=== PATIENT | male | born 1960 | race African-American/Black ===

== ENCOUNTER 2018-03-14 04:59 | Inpatient (IN) | payer MEDICAID ==
[2018-03-14] VITALS (7 sets, daily range): BP systolic 99–129; BP diastolic 51–89
[~2018-03-14] VITALS: Ht 167.6 cm; Wt 79.8 kg
[2018-03-14] MEDS ORDERED: KETOROLAC 30MG/ML VIAL IV STA (06:32)
[2018-03-14] MEDS ORDERED: ACETAMINOPHEN 325MG TABLET PO STA (06:32)
[2018-03-14] MEDS ORDERED: SODIUM CHLORIDE 0.9% 1,000 ML IV ONE (06:32)
[2018-03-14 07:25] LABS: HEMATOCRIT. 42.6 % (42.0-52.0); HEMOGLOBIN. 14.5 g/dL (14.0-18.0); MEAN PLATELET VOLUME 7.4 fl (7.4-10.4); PLATELET 226 x1000/uL (130-400); RED BLOOD CELL COUNT 4.53 mill/uL (4.7-6.1); RED CELL DISTRIBUTION WIDTH 14.9 % (11.6-14.6)
[2018-03-14 07:32] LABS: CHLORIDE 103 mEq/L (98-107); INR 1.1; PROTHROMBIN TIME 10.9 sec (9.1-11.1)
[2018-03-14 07:55] LABS: CLARITY URINE CLEAR (CLEAR); COLOR URINE DARK YELLOW (YELLOW); KETONES URINE 3+ (NEGATIVE); LEUKOCYTE ESTERASE URINE NEGATIVE (NEGATIVE); NITRITE URINE NEGATIVE (NEGATIVE); OCCULT BLOOD URINE TRACE (NEGATIVE); PROTEIN URINE 1+ (NEGATIVE); SPECIFIC GRAVITY URINE 1.032 (1.005-1.030)
[2018-03-14 08:56] LABS: PLATELET ESTIMATE NORMAL
[2018-03-14] MEDS ORDERED: SODIUM CHLORIDE 0.9% 1000ML BAG (SEPSIS BOLUS) IV ONE (09:15)
[2018-03-14] MEDS ORDERED: PIPERACILLIN/TAZ 3.375G PREMIX 50 ML IV ONE (09:15)
[2018-03-14] MEDS ORDERED: VANCOMYCIN 1 G PREMIX 200 ML IV ONE (09:15)
[2018-03-14] MEDS ORDERED: CEFTRIAXONE 1 G PREMIX 50 ML IV ONE (11:15)
[2018-03-14] MEDS: AZITHROMYCIN 500 MG in DEXT 5% WATER 250 ML IV SCH (12:28)
[2018-03-14] MEDS ORDERED: DOCUSATE SODIUM 100MG CAPSULE PO PRN (15:30)
[2018-03-14] MEDS ORDERED: CLONIDINE 0.1MG TABLET PO PRN (15:30)
[2018-03-14] MEDS ORDERED: GUAIFENESIN 200MG/10ML SUGAR FREE UDC PO PRN (15:30)
[2018-03-14] MEDS ORDERED: IPRATROPIUM/ALBUTEROL 0.5-3(2.5)MG/3ML NEB INH PRN (15:30)
[2018-03-14] MEDS ORDERED: MAGNESIUM/ALUMINUM HYDROXIDE/SIMETHICONE 30ML UDC PO PRN (15:30)
[2018-03-14] MEDS ORDERED: ONDANSETRON HCL 4MG/2ML INJ IV PRN (15:30)
[2018-03-14] MEDS ORDERED: ACETAMINOPHEN 325MG TABLET PO PRN (15:30)
[2018-03-14] MEDS ORDERED: INFLUENZA VIRUS VACCINE(AFLURIA) 0.5ML SYR IM ONE (16:15)
[2018-03-14] MEDS: SODIUM CHLORIDE 0.9% 1,000 ML IV SCH (16:25)
[2018-03-14 20:13] LABS: HEPATITIS B SURFACE ANTIGEN NEGATIVE
[2018-03-14 21:47] LABS: HEPATITIS A AB IGM NEGATIVE (NEGATIVE)
[2018-03-14] MEDS: VANCOMYCIN 750 MG PREMIX 150 ML IV SCH (23:04)
[2018-03-14 23:29] LABS: *AMPHETAMINES SCREEN URINE NEGATIVE (NEGATIVE); *BARBITURATES SCREEN URINE NEGATIVE (NEGATIVE); *BENZODIAZEPINES SCREEN URINE NEGATIVE (NEGATIVE); *COCAINE SCREEN URINE NEGATIVE (NEGATIVE); METHADONE URINE SCREEN NEGATIVE (NEGATIVE); OPIATES URINE SCREEN NEGATIVE (NEGATIVE)
[2018-03-14 23:30] LABS: CANNABINOID URINE SCREEN PRESUMTIVE POSITIVE (NEGATIVE); PHENCYCLIDINE URINE SCREEN NEGATIVE (NEGATIVE)
[2018-03-15] VITALS (13 sets, daily range): BP systolic 115–138; BP diastolic 71–92
[2018-03-15] MEDS: SODIUM CHLORIDE 0.9% 1,000 ML IV SCH (04:47)
[2018-03-15] MEDS: VANCOMYCIN 750 MG PREMIX 150 ML IV SCH ×3 (05:30→21:13)
[2018-03-15 06:11] LABS: BASOPHILS % 0.3 % (0.0-2.0); EOSINOPHILS % 0.4 % (0.0-5.0); HEMOGLOBIN. 12.7 g/dL (14.0-18.0); LYMPHOCYTES % 10.1 % (20.0-50.0); MEAN CORPUSCULAR HEMOGLOBIN 32.1 pg (28.0-32.0); MEAN CORPUSCULAR VOLUME 93.7 fL (80.0-94.0); MEAN PLATELET VOLUME 8.1 fl (7.4-10.4); MONOCYTES % 6.1 % (2.0-8.0); NEUTROPHILS % 83.1 % (40.0-76.0); PLATELET 203 x1000/uL (130-400); RED BLOOD CELL COUNT 3.95 mill/uL (4.7-6.1); RED CELL DISTRIBUTION WIDTH 14.5 % (11.6-14.6)
[2018-03-15 06:48] LABS: CHLORIDE 102 mEq/L (98-107)
[2018-03-15 07:03] LABS: T4 FREE 0.81 ng/dL (0.76-1.46)
[2018-03-15] MEDS: HYDROCODONE/ACETAMINOPHEN 5/325MG TABLET PO PRN ×2 (09:12→18:49)
[2018-03-15] MEDS: PANTOPRAZOLE SODIUM 40 MG/VIAL IV SCH (09:13)
[2018-03-15] MEDS ORDERED: CEFTRIAXONE 1 G PREMIX 50 ML IV SCH ×2 (11:15→12:00)
[2018-03-15] MEDS ORDERED: POTASSIUM CHLORIDE 20MEQ TABLET SR PO SCH (12:15)
[2018-03-15] MEDS: AZITHROMYCIN 500 MG in DEXT 5% WATER 250 ML IV SCH (12:35)
[2018-03-16] VITALS (7 sets, daily range): BP systolic 118–154; BP diastolic 52–104
[2018-03-16] MEDS: HYDROCODONE/ACETAMINOPHEN 5/325MG TABLET PO PRN (02:30)
[2018-03-16 05:47] LABS: BASOPHILS % 0.7 % (0.0-2.0); HEMATOCRIT. 39.5 % (42.0-52.0); HEMOGLOBIN. 13.3 g/dL (14.0-18.0); LYMPHOCYTES % 13.5 % (20.0-50.0); MEAN CORPUSCULAR HEMOGLOBIN 31.7 pg (28.0-32.0); MEAN CORPUSCULAR VOLUME 94.1 fL (80.0-94.0); MEAN PLATELET VOLUME 7.5 fl (7.4-10.4); MONOCYTES % 9.3 % (2.0-8.0); NEUTROPHILS % 74.5 % (40.0-76.0); PLATELET 190 x1000/uL (130-400); RED CELL DISTRIBUTION WIDTH 14.6 % (11.6-14.6)
[2018-03-16 05:56] LABS: CHLORIDE 102 mEq/L (98-107)
[2018-03-16 06:17] LABS: VANCOMYCIN TROUGH 23.7 ug/mL (5.0-10.0)
[2018-03-16] MEDS: VANCOMYCIN 750 MG PREMIX 150 ML IV SCH (06:30)
[2018-03-16] MEDS: PANTOPRAZOLE SODIUM 40 MG/VIAL IV SCH (09:27)
[2018-03-16] MEDS ORDERED: PANT40TA4 MT (12:01)
[2018-03-16] MEDS ORDERED: LEVO750T46 MT (12:01)
[2018-03-16] MEDS ORDERED: LEVOFLOXACIN 750MG PREMIX 150 ML IV SCH (13:00)
[2018-03-16] MEDS ORDERED: FAMOTIDINE 20MG/2ML VIAL IV SCH (21:00)
== END 2018-03-16 15:06 | disposition home or self-care (01) | DRG 720 ==
LOC: ER 04:59 → 5EST 09:48 → EDBEDREQ 09:50 → EDBEDREQTM 09:50 → ENRESERV 10:13
PROVIDERS: ADMIT Internal Medicine; ATTEND Internal Medicine
DX: A41.51 Sepsis due to Escherichia coli [E. coli] (principal); E87.1 Hypo-osmolality and hyponatremia; B34.9 Viral infection, unspecified; I10 Essential (primary) hypertension; K21.9 Gastro-esophageal reflux disease without esophagitis; G40.909 Epilepsy, unspecified, not intractable, without status epilepticus; E11.9 Type 2 diabetes mellitus without complications; R74.0 Nonspecific elevation of levels of transaminase and lactic acid dehydrogenase [LDH]; F12.90 Cannabis use, unspecified, uncomplicated; Z90.49 Acquired absence of other specified parts of digestive tract; Z79.84 Long term (current) use of oral hypoglycemic drugs
CPT/HCPCS: 36415; 71045; 74176; 76700; 80048; 80202; 80305; 82140; 82270; 83605; 84145; 84439; 84443; 84481; 84484; 86705; 86709; 86803; 87077; 87186; 87340; 87804; 90686; 93005; 93970; 96361; 96365; 96368; 96375; 99291; C9113; J0456; J0696; J1885; J1956; J2543; J3370; J7030; J7060

== ENCOUNTER 2018-07-30 20:12 | Emergency (ER) | payer MEDICAID, OTHER ==
[~2018-07-30] VITALS: Ht 167.6 cm; Wt 76.0 kg
[~2018-07-30 20:12] MED LIST: LEVO750T46 MT; PANT40TA4 MT
[2018-07-30] MEDS ORDERED: DIAZEPAM 5 MG TABLET PO ONE (22:30)
[2018-07-30] MEDS ORDERED: KETOROLAC 60MG/2ML VIAL IM ONE (22:30)
[2018-07-30 23:35] VITALS: BP 119/83
== END 2018-07-30 23:40 | disposition home or self-care (01) ==
LOC: ER 20:12
DX: M54.5 Low back pain (principal); I10 Essential (primary) hypertension; F12.10 Cannabis abuse, uncomplicated; F17.200 Nicotine dependence, unspecified, uncomplicated; Z90.49 Acquired absence of other specified parts of digestive tract; Z79.899 Other long term (current) drug therapy
CPT/HCPCS: 96372; 99283; J1885

== ENCOUNTER 2019-08-20 08:06 | Emergency (ER) | payer MEDICAID, OTHER ==
[~2019-08-20] VITALS: Ht 167.6 cm; Wt 81.6 kg
[2019-08-20 08:25] VITALS: BP 132/79
[2019-08-20] MEDS ORDERED: DIPHENHYDRAMINE 25MG CAPSULE PO ONE (09:00)
== END 2019-08-20 09:13 | disposition home or self-care (01) ==
LOC: ER 08:06
DX: T63.441A Toxic effect of venom of bees, accidental (unintentional), initial encounter (principal); F12.10 Cannabis abuse, uncomplicated; Z90.49 Acquired absence of other specified parts of digestive tract; Y92.89 Other specified places as the place of occurrence of the external cause
CPT/HCPCS: 99282; Q0163